=== PATIENT | female | born 1950 | race Caucasian/White ===

== ENCOUNTER 2018-10-11 13:02 | Emergency (ER) | payer MEDICARE ==
[~2018-10-11] VITALS: Ht 149.9 cm; Wt 59.4 kg
[2018-10-11] MEDS ORDERED: LISINOPRIL20 MG PO (13:16)
[2018-10-11] MEDS ORDERED: BACTRIM DS TAB1 EACH PO (19:11)
== END 2018-10-11 19:28 | disposition home or self-care (01) ==
LOC: ED 13:02
DX: N39.0 Urinary tract infection, site not specified (principal); K80.80 Other cholelithiasis without obstruction; I10 Essential (primary) hypertension; F41.9 Anxiety disorder, unspecified; F17.200 Nicotine dependence, unspecified, uncomplicated; Z88.0 Allergy status to penicillin; Z88.5 Allergy status to narcotic agent; Z79.899 Other long term (current) drug therapy
CPT/HCPCS: 74176; 76705; 80053; 81001; 83690; 85025; 87077; 87088; 87186; 99284-25